=== PATIENT | female | born 1955 | race Caucasian/White ===

== ENCOUNTER → 2024-07-17 09:58 | Outpatient (REF) | payer MEDICARE, OTHER, SELFPAY | LOC: RAD 09:58 | PROVIDERS: ATTENDING PHYSICIAN Internal Medicine Cardiovascular Disease; FAMILY PHYSICIAN Internal Medicine | DX: R94.39 Abnormal result of other cardiovascular function study (principal) | CPT/HCPCS: 75574; Q9967 ==

== ENCOUNTER 2024-08-06 09:16 | Day surgery (SDC) | payer MEDICARE, OTHER, SELFPAY ==
[2024-08-06] VITALS (9 sets, daily range): BP systolic 115–157; BP diastolic 60–78; BMI 28.7
[2024-08-06 10:14] LABS: % Basophils 0.7 % (0-2); % Immature Granulocytes 0.2 % (0-0.5); % Lymphocytes 30.9 % (20.5-51.1); % Monocytes 7.2 % (1.7-9.3); Absolute Basophils 0.1 10^3/uL (0-0.2); Absolute Lymphocytes 2.8 10^3/uL (1.2-3.4); Absolute Monocytes 0.7 10^3/uL (0.1-0.6); Absolute Neutrophils 5.6 10^3/uL (1.4-6.5); Hematocrit 41.1 % (37.0-47.0); Hemoglobin 13.4 g/dL (12.0-16.0); Mean Corp Hgb Conc. 32.6 g/dL (33.0-37.0); Mean Corpuscular Hgb 27.5 pg (27.0-31.0); Mean Corpuscular Volume 84.4 fL (81.0-99.0); Mean Platelet Volume 11.6 fL (7.4-10.4); Nucleated Red Blood Cells % 0 %; Platelet Count 245 10^3/uL (130-400); Red Blood Cell Count 4.87 10^6/uL (4.20-5.40); Red Cell Dist. Width 13.8 % (11.5-14.5); White Blood Cell Count 9.1 10^3/uL (4.8-10.8)
[2024-08-06] MEDS: NSS 242 ML IV (10:14)
[2024-08-06 10:37] LABS: Blood Urea Nitrogen 14 mg/dl (7-17); Calcium 9.8 mg/dl (8.4-10.2); Carbon Dioxide 32 mmol/L (22-30); Chloride 106 mmol/L (98-107); Estimated Creatinine Clearance 93 ml/min; Glucose 100 mg/dl (70-99); Potassium 4.5 mmol/L (3.5-5.1); Sodium 143 mmol/L (135-145); eGFR > 60.00
[2024-08-06 13:25] LABS: ACT-LR - POC 218 Seconds (116-155)
--- NOTE | 2024-08-06 13:48 | ITS.CL.CATH ---
Pathology Supervisor - Catheterization
Cardiac Catheterization
Procedure Report:
LEFT HEART CATHETERIZATION
Date of Procedure: August 06, 2024
Referring: Dr. Adam Bhagat
PROCEDURES:
1. Left heart catheterization with coronary and single-plane left ventriculography
2. Hemodynamic assessment of RCA with Stickney Omni wire. The iFR serially measured above the ischemic threshold at 0.95 x 3
INDICATION: This is a 69-year-old female with a past medical history notable for hypertension, hyperlipidemia, and GI reflux. She was initially evaluated for somewhat atypical substernal chest pressure with no ischemia noted on a recent stress
study. On follow-up she reported ongoing symptoms of exertional dyspnea and a subsequent stress Myoview study was notable for transient ECG changes which resolved following the stress of exercise. Perfusion was normal and LVEF was normal.
However, in the setting of ongoing symptoms she is now referred for coronary angiography.
ACCESS: Right radial artery, 6 [place] sheath
HEMODYNAMICS : (mmHg)
AO (s/d) : 137/67, 97
LV (s/d) : 146/11
LVEDP : 25
CORONARY FINDINGS
DOMINANCE: Right
LEFT MAIN: Cloacal left main with near separate ostia of LAD and
LEFT ANTERIOR DESCENDING: The LAD arises normally from the left main and runs in the anterior interventricular groove. The LAD has only minor irregularities over its course.
CIRCUMFLEX: The circumflex is a medium caliber nondominant vessel that supplies a single sizable obtuse marginal branch that trifurcates distally. Only minor irregularities are noted.
RIGHT CORONARY ARTERY: The right coronary artery is a monitor large-caliber dominant vessel with a long 50% stenosis in its midportion. The mid to distal RCA has only minor luminal irregularities. The PDA and posterolateral branches are widely
patent. The iFR in the LAD measured above the ischemic threshold at 0.95, 0.95, and 0.95. The Pd/Pa at the guide catheter tip measured 0.99 confirming no baseline drift.
VENTRICULOGRAPHY: Left ventriculography is performed in JORGE projection. The digital single-plane ventricular ejection fraction is estimated at 60%
SEDATION: 45 minutes of procedural sedation was utilized. An independent medical record specialist was present to assist with and help manage the patient's level of consciousness and physiologic status.
RADIATION SUMMARY: Fluoro Time (min): 7.2, Dose (mGy): 282, DAP (Gy.cm2) : 22
Closure Device: TR band
CONCLUSIONS
1. Moderate coronary disease involving the mid RCA. The iFR serially measured above the ischemic threshold at 0.95, 0.95, and 0.95. No significant coronary disease was noted in LAD or circumflex
2. Preserved LV systolic function
3. Elevated LVEDP
RECOMMENDATIONS
1. Continue aspirin 81 mg daily and initiate lipid-lowering with atorvastatin 40 mg daily
2. Start furosemide 20 mg daily
3. Follow-up with Dr. Douglas
Copy to: Dr. Adam Bhagat
== END 2024-08-06 16:25 | disposition home or self-care (01) ==
LOC: CATH 09:16
PROVIDERS: ATTENDING PHYSICIAN Internal Medicine Interventional Cardiology; FAMILY PHYSICIAN Internal Medicine; OTHER PHYSICIAN Internal Medicine Cardiovascular Disease
DX: I25.10 Atherosclerotic heart disease of native coronary artery without angina pectoris (principal); R07.89 Other chest pain; E78.5 Hyperlipidemia, unspecified; I10 Essential (primary) hypertension; Z79.82 Long term (current) use of aspirin; K21.9 Gastro-esophageal reflux disease without esophagitis; Z79.899 Other long term (current) drug therapy
CPT/HCPCS: 93799; 99152; 99153; 80048; 85025; 85347; 93005; 93458; C1769; C1894; Q9967